=== PATIENT | female | born 1975 | race Caucasian/White ===

== ENCOUNTER 2016-10-06 09:07 | Outpatient (CLI) | payer OTHER | END 2016-10-06 09:08 | disposition home or self-care (01) | LOC: BURLAB 09:07 | PROVIDERS: ATTEND Family Medicine | DX: E03.9 Hypothyroidism, unspecified (principal) | CPT/HCPCS: 36415; 84443 ==

== ENCOUNTER 2016-12-22 09:41 | Outpatient (CLI) | payer OTHER | END 2016-12-22 09:42 | disposition home or self-care (01) | LOC: LABLEX 09:41 | PROVIDERS: ATTEND Family Medicine | DX: E03.9 Hypothyroidism, unspecified (principal) | CPT/HCPCS: 84443 ==